=== PATIENT | male | born 1990 | race African-American/Black ===

== ENCOUNTER → 2024-06-12 | Outpatient (CLI) | payer MEDICAID ==
[~2024-06-12] MED LIST: BIKT1TAB PO
== END ==
LOC: M LAB 15:53
PROVIDERS: ATTEND Nurse Practitioner Psychiatric/Mental Health
DX: Z53.9 Procedure and treatment not carried out, unspecified reason (principal)

== ENCOUNTER → 2024-06-17 | Outpatient (REF) | payer MEDICAID ==
[2024-06-17 17:20] LABS: APPEARANCE, URINE CLEAR (CLEAR); BACTERIA, URINE AUTO NEGATIVE (NEGATIVE); BILIRUBIN, URINE AUTO NEGATIVE (NEGATIVE); BLOOD, URINE BLOOD NEGATIVE (NEGATIVE); COLOR, URINE YELLOW (YELLOW); GLUCOSE, URINE (UA) AUTO NEGATIVE (NEGATIVE); KETONE, URINE AUTO NEGATIVE (NEGATIVE); LEUKOCYTE ESTERASE, URINE AUTO NEGATIVE (NEGATIVE); NITRITE, URINE AUTO NEGATIVE (NEGATIVE); PROTEIN, URINE AUTO NEGATIVE (NEGATIVE); RBC, URINE AUTO 0 /HPF (0-3); SPECIFIC GRAVITY URINE AUTO 1.013 (1.002-1.035); SQUAMOUS EPITHELIAL CELL UR AU 0 /HPF (0-6); WBC, URINE AUTO 0 /HPF (0-3)
[2024-06-17 18:49] LABS: GC DNA AMPLIFICATION NEGATIVE (NEGATIVE)
[2024-06-17 18:50] LABS: GC DNA AMPLIFICATION NEGATIVE (NEGATIVE)
== END ==
LOC: M SFHCPLAZ 16:47
PROVIDERS: ATTEND Internal Medicine Infectious Disease
DX: Z11.3 Encounter for screening for infections with a predominantly sexual mode of transmission (principal); B20 Human immunodeficiency virus [HIV] disease

== ENCOUNTER → 2024-06-18 | Outpatient (CLI) | payer MEDICAID ==
[2024-06-23 17:18] LABS: RPR Reactive (Non-Reactive); T PALLIDUM ANTIBODIES Positive (Negative)
== END ==
LOC: M LAB 13:14
PROVIDERS: ATTEND Nurse Practitioner Psychiatric/Mental Health
DX: F43.9 Reaction to severe stress, unspecified (principal)

== ENCOUNTER → 2024-06-24 | Outpatient (CLI) | payer MEDICAID ==
[2024-06-24 14:23] LABS: ALBUMIN 3.7 G/DL (3.2-5.2); ALKALINE PHOSPHATASE 74 U/L (46-116); ALT/SGPT 22 U/L (7.0-40); AST/SGOT 26 U/L (<34); BILIRUBIN,TOTAL 0.4 MG/DL (0.3-1.2); BLOOD UREA NITROGEN 15 MG/DL (9-23); CARBON DIOXIDE LEVEL 26 MMOL/L (20-31); CHLORIDE LEVEL 109 MMOL/L (98-107); CREATININE FOR GFR 0.97 MG/DL (0.70-1.30); GLOMERULAR FILTRATION RATE > 60.0 (>60); GLUCOSE, FASTING 93 MG/DL (60-100); POTASSIUM SERUM 4.1 MMOL/L (3.5-5.1); SODIUM LEVEL 141 MMOL/L (136-145); TOTAL PROTEIN 6.9 G/DL (5.7-8.2)
[2024-06-24 14:33] LABS: HEPATITIS B SURFACE ANTIGEN NEGATIVE (NEGATIVE)
[2024-06-24 14:54] LABS: HEPATITIS C VIRUS ABY INDEX < 0.02 INDEX (<0.8)
[2024-06-25 09:46] LABS: HEPATITIS A IgG TOTAL REACTIVE (NON-REACTIVE); HEPATITIS B CORE ANTIBODY IGG NON-REACTIVE (NON-REACTIVE); HEPATITIS B SURF AB QUANT 14 mIU/mL (> OR = 10)
[2024-06-25 10:13] LABS: % CD4+ LYMPHS 40.5 % (30.8-58.5); ABSOLUTE CD4 HELPER 689 /uL (359-1519); BASOPHILS 1 % (Not Estab.); EOSINOPHILS 2 % (Not Estab.); EOSINOPHILS ABSOLUTE 0.1 x10E3/uL (0.0-0.4); HCT 40.9 % (37.5-51.0); HGB 13.8 g/dL (13.0-17.7); LYMPHOCYTES 41 % (Not Estab.); LYMPHOCYTES ABSOLUTE 1.7 x10E3/uL (0.7-3.1); MCH 32.9 pg (26.6-33.0); MCHC 33.7 g/dL (31.5-35.7); MCV 98 fL (79-97); MONOCYTES 8 % (Not Estab.); MONOCYTES ABSOLUTE 0.3 x10E3/uL (0.1-0.9); NEUTROPHILS 48 % (Not Estab.); PLT 287 x10E3/uL (150-450); RBC 4.19 x10E6/uL (4.14-5.80); RDW 11.7 % (11.6-15.4); WBC 4.2 x10E3/uL (3.4-10.8)
[2024-06-26 18:22] LABS: HIV-1 RNA PCR QUANT 2 NOT DETECTED copies/mL (NOT DETECTED); HIV-1 RNA PCR QUANT 3 NOT DETECTED (NOT DETECTED)
[2024-06-27 16:37] LABS: QuantiFERON-TB Gold Plus POSITIVE (NEGATIVE)
[2024-06-29 18:47] LABS: RPR Reactive (Non-Reactive); T PALLIDUM ANTIBODIES Positive (Negative)
== END ==
LOC: M PLALAB 10:05
PROVIDERS: ATTEND Internal Medicine Infectious Disease
DX: B20 Human immunodeficiency virus [HIV] disease (principal); Z11.3 Encounter for screening for infections with a predominantly sexual mode of transmission

== ENCOUNTER 2025-01-01 15:33 | Emergency (ER) | payer MEDICAID, OTHER ==
[~2025-01-01] VITALS: Ht 177.8 cm; Wt 70.6 kg
[2025-01-01 22:17] VITALS: BP 157/88; TEMP 99; O2SAT 98
== END 2025-01-01 22:27 | disposition home or self-care (01) ==
LOC: M ED 15:33
DX: B34.2 Coronavirus infection, unspecified (principal); I10 Essential (primary) hypertension; B20 Human immunodeficiency virus [HIV] disease; F41.9 Anxiety disorder, unspecified; F31.9 Bipolar disorder, unspecified; F17.210 Nicotine dependence, cigarettes, uncomplicated; F12.10 Cannabis abuse, uncomplicated; Z88.0 Allergy status to penicillin; Z79.899 Other long term (current) drug therapy

== ENCOUNTER → 2025-01-12 | Outpatient (CLI) | payer OTHER ==
[2025-01-12 17:09] LABS: ALBUMIN 4.1 G/DL (3.2-5.2); ALKALINE PHOSPHATASE 87 U/L (40-129); ALT/SGPT 26 U/L (7.0-40); AST/SGOT 23 U/L (<34); BILIRUBIN,TOTAL 2.2 MG/DL (0.3-1.2); BLOOD UREA NITROGEN 20 MG/DL (9-23); CALCIUM LEVEL 9.6 MG/DL (8.5-10.1); CARBON DIOXIDE LEVEL 32 MMOL/L (20-31); CHLORIDE LEVEL 101 MMOL/L (98-107); CREATININE FOR GFR 1.16 MG/DL (0.70-1.30); GLOMERULAR FILTRATION RATE > 60.0 (>60); GLUCOSE, FASTING 81 MG/DL (60-100); POTASSIUM SERUM 4.1 MMOL/L (3.5-5.1); SODIUM LEVEL 140 MMOL/L (136-145); TOTAL PROTEIN 7.8 G/DL (5.7-8.2)
[2025-01-14 15:11] LABS: % CD4+ LYMPHS 41.9 % (30.8-58.5); ABSOLUTE CD4 HELPER 1048 /uL (359-1519); BASOPHILS 0 % (Not Estab.); EOSINOPHILS 1 % (Not Estab.); EOSINOPHILS ABSOLUTE 0.1 x10E3/uL (0.0-0.4); HCT 44.3 % (37.5-51.0); HGB 14.4 g/dL (13.0-17.7); Immature Grans 1 % (Not Estab.); LYMPHOCYTES 43 % (Not Estab.); LYMPHOCYTES ABSOLUTE 2.5 x10E3/uL (0.7-3.1); MCH 33.1 pg (26.6-33.0); MCHC 32.5 g/dL (31.5-35.7); MCV 102 fL (79-97); MONOCYTES 8 % (Not Estab.); MONOCYTES ABSOLUTE 0.5 x10E3/uL (0.1-0.9); NEUTROPHILS 47 % (Not Estab.); NEUTROPHILS ABSOLUTE 2.7 x10E3/uL (1.4-7.0); PLT 360 x10E3/uL (150-450); RBC 4.35 x10E6/uL (4.14-5.80); RDW 11.9 % (11.6-15.4); WBC 5.9 x10E3/uL (3.4-10.8)
[2025-01-15 08:47] LABS: RPR REACTIVE (NON-REACTIVE)
[2025-01-15 15:06] LABS: HIV-1 RNA PCR QUANT 2 NOT DETECTED copies/mL (NOT DETECTED); HIV-1 RNA PCR QUANT 3 NOT DETECTED (NOT DETECTED)
== END ==
LOC: M PLALAB 12:46
PROVIDERS: ATTEND Internal Medicine Infectious Disease
DX: B20 Human immunodeficiency virus [HIV] disease (principal); Z86.19 Personal history of other infectious and parasitic diseases

== ENCOUNTER 2025-01-22 10:28 | Emergency (ER) | payer OTHER ==
[~2025-01-22] VITALS: Ht 175.3 cm; Wt 73.0 kg
[2025-01-22] MEDS ORDERED: CVS1CAP2 PO (11:35)
[2025-01-22] MEDS ORDERED: CLIN-250 PO (11:35)
[2025-01-22] MEDS ORDERED: NAPR-837 PO (11:36)
[2025-01-22 11:37] VITALS: BP 129/91; TEMP 97.2; O2SAT 99
== END 2025-01-22 11:42 | disposition home or self-care (01) ==
LOC: M ED 10:28
DX: L03.116 Cellulitis of left lower limb (principal); B20 Human immunodeficiency virus [HIV] disease; F19.10 Other psychoactive substance abuse, uncomplicated; Z88.0 Allergy status to penicillin; Z79.2 Long term (current) use of antibiotics; Z79.899 Other long term (current) drug therapy

== ENCOUNTER 2025-06-27 22:32 | Emergency (ER) | payer OTHER ==
[~2025-06-27] VITALS: Ht 175.3 cm; Wt 71.4 kg
[~2025-06-27 22:32] MED LIST changes: +CLIN-250 PO; +CVS1CAP2 PO; +NAPR-837 PO
[2025-06-28 00:15] LABS: BASO # 0.1 10^3/uL (0.0-0.2); BASO % 0.4 % (0.0-1.0); EOS # 0.0 10^3/uL (0.0-0.5); EOS % 0.2 % (0.0-3.0); LYMPH # 1.2 10^3/uL (1.5-5.0); LYMPH % 9.0 % (24.0-44.0); MONO # 0.5 10^3/uL (0.0-0.8); MONO % 3.4 % (2.0-8.0); NEUTROPHILS # 11.5 10^3/uL (1.5-8.5); NEUTROPHILS % 86.5 % (36.0-66.0); PLATELET COUNT, AUTOMATED 264 10^3/uL (150-450)
[2025-06-28 00:49] LABS: ALT/SGPT 22.0 U/L (7.0-40); AST/SGOT 30.0 U/L (<34)
[2025-06-28 01:00] VITALS: BP 122/62; TEMP 98.1; O2SAT 100
[2025-06-28] MEDS ORDERED: ISOVUE-370 76% 100 ML VIAL As Ordered ONE (01:16)
[2025-06-28] MEDS: NS (Normal Saline) 0.9% 1,000 ML IV ONE (01:20)
== END 2025-06-28 01:55 | disposition left against medical advice (07) ==
LOC: M ED 22:32
DX: R10.9 Unspecified abdominal pain (principal); B20 Human immunodeficiency virus [HIV] disease; F31.9 Bipolar disorder, unspecified; F20.9 Schizophrenia, unspecified; F17.200 Nicotine dependence, unspecified, uncomplicated; F15.10 Other stimulant abuse, uncomplicated; Z79.899 Other long term (current) drug therapy; Z88.0 Allergy status to penicillin
CPT/HCPCS: 74177; 80047; 80076; 83690; 85025; 96374; 99284; J2765; Q9967